=== PATIENT | female | born 1975 | race Two or more races ===

== ENCOUNTER 2023-03-03 19:32 | Emergency (ER) | payer MEDICAID ==
[~2023-03-03] VITALS: Ht 167.6 cm; Wt 55.8 kg
[~2023-03-03 19:32] MED LIST: AMOX400C20
[2023-03-03] MEDS ORDERED: IBUP-1453 PO (23:52)
[2023-03-04 02:02] VITALS: BP 123/72; PULSE 56; RESP 18; TEMP 98.1; O2SAT 100
== END 2023-03-04 02:22 | disposition home or self-care (01) ==
LOC: ER 19:32
DX: S62.011A Displaced fracture of distal pole of navicular [scaphoid] bone of right wrist, initial encounter for closed fracture (principal); S52.591A Other fractures of lower end of right radius, initial encounter for closed fracture; J45.909 Unspecified asthma, uncomplicated; F17.210 Nicotine dependence, cigarettes, uncomplicated; Z88.0 Allergy status to penicillin; Z79.1 Long term (current) use of non-steroidal anti-inflammatories (NSAID); Z79.899 Other long term (current) drug therapy; W18.39XA Other fall on same level, initial encounter; Y93.89 Activity, other specified; Y92.89 Other specified places as the place of occurrence of the external cause; Y99.8 Other external cause status
CPT/HCPCS: 29125; 73110